=== PATIENT | female | born 1985 | race Two or more races ===

== ENCOUNTER 2018-01-16 20:52 | Emergency (ER) | payer MEDICAID, OTHER ==
[~2018-01-16] VITALS: Ht 154.9 cm; Wt 60.0 kg
[2018-01-16 22:08] LABS: BASOPHILS % 0.4 % (0.0-2.0); EOSINOPHILS % 0.7 % (0.0-5.0); HEMATOCRIT. 40.4 % (36.0-48.0); HEMOGLOBIN. 13.9 g/dL (12.0-16.0); MEAN CORPUSCULAR VOLUME 93.3 fL (81.0-99.0); MEAN PLATELET VOLUME 8.4 fl (7.4-10.4); MONOCYTES % 4.7 % (2.0-8.0); NEUTROPHILS % 82.2 % (40.0-76.0); PLATELET 222 x1000/uL (130-400); RED BLOOD CELL COUNT 4.33 mill/uL (4.2-5.4); RED CELL DISTRIBUTION WIDTH 13.5 % (11.6-14.6)
[2018-01-16 22:15] LABS: CHLORIDE 99 mEq/L (98-107)
[2018-01-16 22:19] LABS: HCG SCREEN NEGATIVE
[2018-01-16] MEDS ORDERED: PHENYTOIN SODIUM EXTENDED 100MG CAPSULE PO ONE (22:30)
[2018-01-16 22:35] LABS: CARBAMAZEPINE < 0.5 ug/mL (4-12); PHENOBARBITAL < 2.1 ug/mL (15.0-40.0); VALPROIC ACID < 3.0 ug/mL (50-100)
[2018-01-16] MEDS ORDERED: ONDANSETRON 4MG ODT PO ONE (23:15)
[2018-01-17 00:37] VITALS: BP 119/81
== END 2018-01-17 00:55 | disposition home or self-care (01) ==
LOC: ER 20:52
DX: S00.03XA Contusion of scalp, initial encounter (principal); R56.9 Unspecified convulsions; Z91.19 Patient's noncompliance with other medical treatment and regimen; W22.8XXA Striking against or struck by other objects, initial encounter; Y93.89 Activity, other specified; Y92.89 Other specified places as the place of occurrence of the external cause; Y99.8 Other external cause status
CPT/HCPCS: 36415; 70450; 80053; 80156; 80165; 80184; 80185; 84703; 85025; 99285; Q0162; Z7610